=== PATIENT | male | born 1990 | race African-American/Black ===

== ENCOUNTER 2017-10-11 08:57 | Emergency (ER) | payer SELFPAY ==
--- NOTE | 2017-10-11 09:02 | ED Physician Documentation ---
Abdominal Pain - HISTORIAN Historian: patient - HPI Stated Complaint: blood in stool 4 days ago Chief Complaint: Rectal Pain Onset: days ago (4) Duration: other (no pain at this time ) Timing: gone now Context: denies: out of country travel, bad food, recent trauma Severity: other (states blood fills toliet when this happens ) Quality: none Associated Symptoms: none Exacerbated by: nothing Relieved by: nothing Further Comments: yes (He states "every once in a while" he has bleeding with bowel movements. He states the blood is bright . not on toliet paper . is in the toliet water. 4 days ago is last issue and it was bright red with toliet full of blood. He denies any pain at this very time. He has no bleeding today . He has had a bowel movement today. He states he has pain with every bowel movement. He states he did not go see a PCP due to he was not having the issue at that time.) - ROS CONST: no problems GI/: constipation, bloody stools CVS/RESP: none MS/SKIN/LYMPH: none NEURO/PSYCH: none - SOCIAL HX Smoking History: non-smoker Alcohol Use: none Drug Use: none - FAMILY HX Family History: none - PAST HX Past History: none Ischemic Bowel Risk Factors: none Other History: none Surgeries/Procedures: none Home Medications: Ambulatory Orders Medication Instructions Recorded NK [NK] 02/01/14 Allergies/Adverse Reactions: Allergies Allergy/AdvReac Type Severity Reaction Status Date / Time No Known Allergies Allergy Verified 07/17/14 06:12 - VITAL SIGNS Vital Signs: Vital Signs Temp Pulse Resp BP Pulse Ox 146/90 07/17/14 07:47 - REVIEWED ASSESSMENTS Nursing Assessment Reviewed: Yes Vitals Reviewed: Yes Abdominal Pain Physical Exam - Physical Exam General Appearance: no acute distress RESPIRATORY: no resp distress, chest non-tender, breath sounds normal CVS: reg rate & rhythm, heart sounds normal, equal pulses, no murmur ABDOMEN: soft, no organomegaly, normal bowel sounds, no abdominal bruit, other ( Patient would not allow provider to due rectal exam . He would allow nurse she did note a small hemorrhoid on rectum with no blood or buldging ) SKIN: warm/dry, normal color EXTREMITIES: non-tender, normal range of motion NEURO: oriented X3, CN's nml as tested, motor nml Vital Signs: Vital Signs Temp Pulse Resp BP Pulse Ox 146/90 07/17/14 07:47 Discharge Clincal Impression: Constipation Qualifiers: Constipation type: other constipation type Qualified Code(s): K59.09 - Other constipation Clincal Impression: (Ruled Out): Constipation by delayed colonic transit Referrals: Primary Doctor,No [Primary Care Provider] - 2 Days Additional Instructions: Miralax 17 gm use 1 pack in 8 oz of water daily Increase water intake increase fiber intake See PCP return for any increased bleeding or concerns Condition: Stable Disposition: 01 HOME, SELF-CARE Decision to Admit: NO Date of Decison to Admit: 10/11/17 Decision Time: 09:27
[2017-10-11 09:43] VITALS: BP 115/77
== END 2017-10-11 09:40 | disposition home or self-care (01) ==
LOC: ED 08:57
DX: K59.09 Other constipation (principal)
CPT/HCPCS: 99283

== ENCOUNTER 2018-10-07 20:19 | Emergency (ER) | payer SELFPAY ==
--- NOTE | 2018-10-07 20:26 | ED Physician Documentation ---
Chest Pain - HISTORIAN Historian: patient - HPI Stated Complaint: chest pain x 5 min Chief Complaint: Chest Pain Onset: minutes (5) Timing: sudden onset (while smoking ) Duration: constant Last known Well Date: 10/07/18 Last Known Well Time: 20:15 Context: other (while smoking ) Severity: moderate Quality: pressure Chest Pain Radiation: no radiation Chest Pain Signs/Symptoms: dyspnea. denies: nausea, vomiting, diaphoresis, cool extremities, dizziness, tachypnea Worsened By: other (palpation ) Relieved By: nothing Further Comments: yes (He states less than 10 min ago he was sitting in the chair smoking and he notes pressure and "bad" chest pain. He denies any activity that he had any injury. Denies any radiation. He has no nausea or vomiting. He notes he has had a "cold" for the last week. No fever) - ROS CONST: none MS/LYMPH: none GI/: none SKIN/ENDO: none NEURO/PSYCH: none - PAST HX MD risk factors: no pertinent history DVT/PE Risk Factors: none TAD/AAA risk factors: none Neuro deficit: none GI disease: none Lung disease: none Surgeries/Procedures: none Immunizations: UTD Allergies/Adverse Reactions: Allergies Allergy/AdvReac Type Severity Reaction Status Date / Time No Known Allergies Allergy Verified 10/07/18 21:12 Home Medications: Ambulatory Orders Medication Instructions Recorded NK 02/01/14 - SOCIAL HX Smoking History: cigarettes Alcohol Use: none Drug Use: none - FAMILY HX Family HX: other (MD ) - VITAL SIGNS Vital Signs: Vital Signs Temp Pulse Resp BP Pulse Ox 115/77 10/11/17 08:58 - REVIEWED ASSESSMENTS Nursing Assessment Reviewed: Yes Vitals Reviewed: Yes Progress - Progress Progress: 2114: Pain has resolved DG 2139: discussed full results. Denies any pain although would like something for feeling "sore" and he has what he feels is anxiety due to being here in the ER. Plan discussed and pt is agreeable DG ED Results Lab/Radiology - Radiology Radiology Impressions: HISTORY: 28-year-old male with chest pain, tachycardia, chest tightness. COMPARISON: None available. TECHNIQUE: Single portable AP view of the chest was performed. FINDINGS: No pneumothorax, consolidative infiltrates, or pulmonary edema. The heart is not enlarged. No fractures are identified about the bony thorax. IMPRESSION: Unremarkable portable chest. Electronically signed on Oct 07, 2018 9:08:18 PM OPEN HEAR[employer] WORKER by: Kirk Engle - Orders Orders: ED Orders Category Date Time Status Continuous EKG monitoring Q30M Care 10/07/18 20:23 Ordered Continuous Pulse Oximetry Q30M Care 10/07/18 20:[address] IV Lock 1T Care 10/07/18 20:23 Ordered CHEST 1VIEW [RAD] Stat Exams 10/07/18 Ordered CBC/PLATELET/DIFF Routine Lab 10/07/18 20:23 Ordered CMP Routine Lab 10/07/18 20:23 Ordered TROPONIN I (cTnI) Stat Lab 10/07/18 20:23 Ordered Aspirin Med 10/07/18 20:22 Once 324 mg PO NOW ONE Oxygen Daily Oxygen 10/07/18 20:30 Ordered EKG WITH COMPARISON Stat Ther 10/07/18 20:23 Ordered Chest Pain Physical Exam - EXAM General Appearance: no acute distress, alert EENT: eye inspection normal, no signs of dehydration Neck: nml inspection Respiratory: no resp. distress, nml breath sounds, other (pain on left chest wall with palpation ) CVS: reg. rate & rhythm, no murmur, pulses equal Abdomen: soft, no distension Skin: warm/dry, normal color Extremities: non-tender, normal range of motion, no evidence of injury, no edema Neuro: oriented X3 Discharge Clincal Impression: Chest pain Qualifiers: Chest pain type: other chest pain Qualified Code(s): R07.89 - Other chest pain Referrals: Primary Doctor,No [Primary Care Provider] - 2 Days Comments: 1. Vistaril 25 mg take 1 by mouth every 12 hours as needed for anxiety 2. Follow up with PCP in 2-4 days 3. STOP SMOKING 4. Return to ER for any concerns Condition: Stable Disposition: 01 HOME, SELF-CARE Decision to Admit: NO Date of Decison to Admit: 10/07/18 Decision Time: 21:52
[2018-10-07] MEDS: IPRATROPIUM/ALBUTEROL SULFATE 3 ML AMPUL.NEB NEB ONE (20:30)
[2018-10-07] MEDS: ASPIRIN 81 MG CHEW TAB PO ONE (20:55)
[2018-10-07] MEDS: 0.9 % SODIUM CHLORIDE 1,000 ML IV ONE (21:16)
[2018-10-07] MEDS: HYDROXYZINE HCL 25 MG TABLET PO ONE (21:50)
[2018-10-07] MEDS: KETOROLAC TROMETHAMINE 30 MG/1ML VIAL IVP ONE (21:51)
[2018-10-07 22:10] VITALS: BP 134/90
--- NOTE | 2018-10-08 05:59 | Diagnostic Imaging Report ---
TONI PUCKETT [facility] [id number] [facility], [facility] [address] [place], [place]. [address] Report Submission Date: Oct 07, 2018 9:08:18 PM HOURLY MANAGER Patient Study Name: SOFIA EM Date: Oct 07, 2018 8:39:23 PM HOURLY MANAGER Modality Type: DX Gender: M Description: CHEST : 89 Institution: [facility] Physician: TONI PUCKETT HISTORY: 28-year-old male with chest pain, tachycardia, chest tightness. COMPARISON: None available. TECHNIQUE: Single portable AP view of the chest was performed. FINDINGS: No pneumothorax, consolidative infiltrates, or pulmonary edema. The heart is not enlarged. No fractures are identified about the bony thorax. IMPRESSION: Unremarkable portable chest. Electronically signed on Oct 07, 2018 9:08:18 PM HOURLY MANAGER by: Kirk HOLDER
[2018-10-08 07:07] LABS: BASOPHILS % 0.5 (0.0-1.5); EOSINOPHILS % 2.8 % (0.0-6.8); MEAN CORPUSCULAR HEMOGLOBIN 28.1 pg (28.0-34.0); MONOCYTES % 5.4 % (0.0-11.0); eGFR (Non-African) > 60
[2018-10-08 07:08] LABS: NEUTROPHILS # 2.7 # k/uL (1.4-7.7)
== END 2018-10-07 22:10 | disposition home or self-care (01) ==
LOC: ED 20:19
DX: R07.89 Other chest pain (principal); Z72.0 Tobacco use
CPT/HCPCS: 36415; 71045; 80053; 84484; 85025; 93005; 94640; 96365; 96375; 99283; 99285; J1885; J7030; S1016